=== PATIENT | female | born 1975 ===

== ENCOUNTER 2017-12-03 20:27 | Emergency (ER) | payer MEDICAID ==
[2017-12-03 22:33] VITALS: BMI 37.2
[2017-12-03] MEDS ORDERED: Oxycodone/Acetaminophen 5/325 mg Tab PO STA (22:35)
[2017-12-03] MEDS ORDERED: Lidocaine 5% Patch TD STA (22:35)
--- NOTE | 2017-12-03 22:35 | ED PDOC ---
Arrival/HPI - General Time Seen by Provider: 12/03/17 22:31 Historian: Patient - History of Present Illness Narrative History of Present Illness (Text): 12/03/17 22:32 42 y/o female, pmh including chronic lower back pain, nkda, c/o lower back pain x 6 years and started to have pain this evening again with no new injury or fall. Aching pain, aggravated by movement, no numbness or tingling, no night sweat, no rash, no dizziness, no change in vision, no palpitation, no urinary symptoms, no urinary or bowel incontinence or retention, no other medical or psychological complaints. Past Medical History - Provider Review Nursing Documentation Reviewed: Yes Family/Social History - Physician Review Nursing Documentation Reviewed: Yes Family/Social History: Unknown Family HX Allergies/Home Meds Allergies/Adverse Reactions: Allergies shellfish derived Adverse Reaction (Verified 12/03/17 22:38) ANGIOEDEMA Review of Systems - Review of Systems Constitutional: absent: Fatigue, Fevers Eyes: absent: Vision Changes ENT: absent: Hearing Changes Respiratory: absent: SOB, Cough Cardiovascular: absent: Chest Pain Gastrointestinal: absent: Abdominal Pain, Diarrhea, Nausea, Vomiting Musculoskeletal: Back Pain. absent: Arthralgias, Neck Pain, Myalgias Skin: absent: Rash, Pruritis, Skin Lesions Neurological: absent: Headache, Dizziness Psychiatric: absent: Anxiety, Depression, Suicidal Ideation Physical Exam Vital Signs Reviewed: Yes Temperature: Afebrile Pulse: Regular Respiratory Rate: Normal Appearance: Positive for: Well-Appearing, Non-Toxic, Comfortable Pain Distress: Moderate Mental Status: Positive for: Alert and Oriented X 3 - Systems Exam Head: Present: Atraumatic, Normocephalic Pupils: Present: PERRL Extroacular Muscles: Present: EOMI Conjunctiva: Present: Normal Mouth: Present: Moist Mucous Membranes Neck: Present: Normal Range of Motion Respiratory/Chest: Present: Clear to Auscultation, Good Air Exchange. No: Respiratory Distress, Accessory Muscle Use Cardiovascular: Present: Regular Rate and Rhythm, Normal S1, S2. No: Murmurs Abdomen: No: Tenderness, Distention, Peritoneal Signs Back: Present: Normal Inspection, Paraspinal Tenderness, Other (LS spine: +ttp on the lt. paraspinal muscle region, no midline tenderness or step off, no CVA tenderness, FROM without limitation, sensation intact, motor 5/5, no saddling gait. ). No: CVA Tenderness, Midline Tenderness, Pain with Leg Raise, Decubitus Ulcer Upper Extremity: Present: Normal Inspection. No: Cyanosis, Edema Lower Extremity: Present: Normal Inspection. No: Edema Neurological: Present: GCS=15, CN II-XII Intact, Speech Normal Skin: Present: Warm, Dry, Normal Color. No: Rashes Psychiatric: Present: Alert, Oriented x 3, Normal Insight, Normal Concentration Medical Decision Making ED Course and Treatment: 12/03/17 22:34 -Toradol/percocet/lidoderm patch -Observe and reassess 12/04/17 00:08 -Urine hcg is negative. -Pt. feels much better, walking around, no focal neurological deficits, no urinary or bowel incontinence or retention. -Discharge home with naproxen, flexeril, lidoderm patch, follow up with your own pmd and orthopedic within 2 days, return to the ER for any new or worsening signs or symptoms. - PA / CONTINUUM OF CARE MANAGER / Resident Statement MD/DO has reviewed & agrees with the documentation as recorded. Disposition/Present on Arrival - Present on Arrival Any Indicators Present on Arrival: No History of DVT/PE: No History of Uncontrolled Diabetes: No Urinary Catheter: No History of Decub. Ulcer: No - Disposition Have Diagnosis and Disposition been Completed?: Yes Diagnosis: Chronic lower back pain Disposition: HOME/ ROUTINE Disposition Time: 22:35 Patient Plan: Discharge Patient Problems: Current Active Problems Problem Status Onset Chronic lower back pain Acute Condition: IMPROVED Additional Instructions: -Discharge home with naproxen, flexeril, lidoderm patch, follow up with your own pmd and orthopedic within 2 days, return to the ER for any new or worsening signs or symptoms. Prescriptions: Cyclobenzaprine [Cyclobenzaprine HCl] 10 mg PO TID PRN #21 tab PRN Reason: Other Lidocaine 5% [Lidoderm] 1 patch TOP DAILY PRN #14 patch PRN Reason: Other Naproxen 500 mg PO BID PRN #20 tablet PRN Reason: Other Referrals: Amena Omalley [Primary Care Provider] - Follow up with primary Hosea Lee MD [Staff Provider] - Follow up with primary Forms: WORK NOTE
[2017-12-04 00:07] VITALS: BP 132/71; PULSE 75; RESP 18; TEMP 98.7; O2SAT 99
== END 2017-12-04 00:22 | disposition home or self-care (01) ==
LOC: ED 20:27
DX: M54.5 Low back pain (principal); G89.29 Other chronic pain
CPT/HCPCS: 96372; 99283; J1885